=== PATIENT | male | born 1965 | race Caucasian/White ===

== ENCOUNTER 2016-10-12 10:15 | Emergency (ER) | payer BC ==
[2016-10-12 10:49] LABS: BASOPHILS 0.1 %; BASOPHILS ABSOLUTE 0.02 10/3/uL (0.0-0.16); EOSINOPHILS 0.1 %; EOSINOPHILS ABSOLUTE 0.01 10/3/uL (0.0-0.53); HEMATOCRIT 35.1 % (40.0-51.0); HEMOGLOBIN 12.2 g/dL (13.6-17.8); IMMATURE GRANULOCYTES 0.2 %; IMMATURE GRANULOCYTES ABSOLUTE 0.03 10/3/uL (0.0-0.11); LYMPHOCYTES 12.1 %; LYMPHOCYTES ABSOLUTE 1.81 10/3/uL (0.67-4.30); MEAN CORPUS HGB CONC 34.8 g/dL (32.0-36.0); MEAN CORPUSCULAR HEMOGLOB 31.1 pg (26.0-34.0); MEAN CORPUSCULAR VOLUME 89.5 fL (80-100); MEAN PLATELET VOLUME 9.1 fL (9.2-13.0); MONOCYTES 3.9 %; MONOCYTES ABSOLUTE 0.58 10/3/uL (0.21-1.20); NEUTROPHILS 83.6 %; NEUTROPHILS ABSOLUTE 12.57 10/3/uL (2.02-8.40); PLATELET COUNT 278 10/3/uL (150-400); RBC DISTRIBUTION WIDTH 12.2 % (12.0-16.0); RED CELL COUNT 3.92 10/6/uL (4.7-6.1)
[2016-10-12 10:53] LABS: ER CBC TAT 0 Hrs 08 Mins; MANUAL DIFF NO %
[2016-10-12 10:56] LABS: INTERNATIONAL NORMAL RATI 1.1 UNITS (-); PARTIAL THROMBO TIME 29.2 SEC (22.5-37.2); PROTIME (NOT ORD) 14.3 SEC (12.0-14.5)
[2016-10-12 11:06] LABS: CALCIUM, SERUM 8.9 MG/DL (8.5-10.4); CHEST PAIN PROFILE TAT 0 Hrs 21 Mins; CHLORIDE, SERUM 110 MMOL/L (96-112); CO2 (CARBON DIOXIDE) 27 MMOL/L (24-34); CREATININE 0.91 MG/DL (0.70-1.30); GFR AFRICAN AMERICAN 112 ML/MIN (>=60); GFR NON AFRICAN AMERICAN 97 ML/MIN (>=60); POTASSIUM, SERUM 3.9 MMOL/L (3.5-5.3); SGOT(AST) 45 U/L (5-40); SGPT(ALT) 62 U/L (5-65); SODIUM, SERUM 143 MMOL/L (135-148); TOTAL BILIRUBIN 0.2 MG/DL (0-1.2); TOTAL PROTEIN 7.1 G/DL (6.0-8.5); TROPONIN I <0.02 NG/ML (<0.05)
[2016-10-12 11:07] LABS: ALKALINE PHOSPHATASE 100 U/L (45-117); BUN (BLOOD UREA NITROGEN) 13 MG/DL (6-23); DIRECT BILIRUBIN < 0.1 MG/DL (0.0-0.4); GLUCOSE, SERUM 203 MG/DL (60-99); INDIRECT BILIRUBIN(NOT ORDER) 0.1 MG/DL (0.1-0.9)
[2016-10-12 11:50] LABS: CPK 111 U/L (0-200)
== END 2016-10-12 13:37 | disposition home or self-care (01) ==
LOC: ER 10:15
PROVIDERS: Emergency Medicine
DX: R11.2 Nausea with vomiting, unspecified (principal); R07.9 Chest pain, unspecified; D72.829 Elevated white blood cell count, unspecified
CPT/HCPCS: 71020; 80048; 80076; 82550; 83690; 83735; 84484; 85025; 85610; 85730; 93005; 99285; A9270-GY